=== PATIENT | male | born 1985 | race Two or more races ===

== ENCOUNTER 2021-08-24 04:55 | Emergency (ER) | payer OTHER ==
[~2021-08-24] VITALS: Ht 170.2 cm; Wt 90.7 kg
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
[2021-08-24] MEDS ORDERED: IV NS 1000 ML 1,000 ML IV ONE (05:15)
[2021-08-24] MEDS ORDERED: OLANZAPINE 10 MG VIAL IM ONE ×2 (05:15)
--- NOTE | 2021-08-24 05:15 | NUR ---
Dr. Javier on bedside for MSE.
[2021-08-24 05:38] LABS: HEMATOCRIT 40.6 % (36.7-47.1); MEAN CORPUSCULAR HEMOGLOBIN 31.1 uug (23.8-33.4); MEAN CORPUSCULAR VOLUME 87.7 fL (73.0-96.2); PLATELET COUNT (AUTO) 345 K/uL (152-348)
--- NOTE | 2021-08-24 05:45 | NUR ---
Pt taken to CT via transport.
[2021-08-24 05:47] LABS: ALANINE AMINOTRANSFERASE 51 U/L (16-63); ALKALINE PHOSPHATASE 127 U/L (50-136); ASPARTATE AMINOTRANSFERASE 35 U/L (15-37); BILIRUBIN,DIRECT 0.1 mg/dL (0.0-0.2); BILIRUBIN,TOTAL 0.7 mg/dL (0.2-1.0); CARBON DIOXIDE 30 mmol/L (21-32); CHLORIDE 102 mmol/L (98-107); CREATINE KINASE, TOTAL 837 U/L (39-308); CREATININE 1.2 mg/dL (0.6-1.3); GLUCOSE 106 mg/dL (74-106); POTASSIUM 4.1 mmol/L (3.5-5.1); TOTAL PROTEIN, SERUM 7.7 g/dL (6.4-8.2); UREA NITROGEN, BLOOD 15 mg/dL (7-18)
[2021-08-24 05:53] LABS: ACETAMINOPHEN < 2.0 ug/mL (10-30)
--- NOTE | 2021-08-24 06:00 | NUR ---
Pt back to ER from CT.
[2021-08-24 06:10] LABS: ETHANOL < 3 MG/DL (0-0)
--- NOTE | 2021-08-24 08:10 | NUR ---
Sent urine sample to lab. Gave pt breakfast tray.
[2021-08-24 08:15] LABS: *BILIRUBIN,URIN NEGATIVE (NEGATIVE); *BLOOD, URINE NEGATIVE (NEGATIVE); *CLARITY,URINE CLEAR (CLEAR); *COLOR,URINE YELLOW (YELLOW); *KETONES,URINE NEGATIVE (NEGATIVE); *UROBILINOGEN,URINE 0.2 E.U./dl (NORMAL); LEUKOCYTE ESTERASE ,URINE NEGATIVE (NEGATIVE); NITRITE, URINE NEGATIVE (NEGATIVE); PH,URINE 6.5 (5.0-8.0); UGLUCOSE NEGATIVE (NEGATIVE)
[2021-08-24 08:40] LABS: *AMPHETAMINE, URINE POSITIVE (NEGATIVE); *CANNABINOID, URINE POSITIVE (NEGATIVE); *COCCAINE, URINE NEGATIVE (NEGATIVE); *OPIATE, URINE NEGATIVE (NEGATIVE); *PHENCYCLIDINE SCREEN,URINE NEGATIVE (NEGATIVE)
--- NOTE | 2021-08-24 09:47 | NUR ---
Packet faxed to [facility]. [phone] hold also faxed.
--- NOTE | 2021-08-24 10:04 | NUR ---
Pt sleeping in bed, no distress noted.
--- NOTE | 2021-08-24 10:36 | NUR ---
ACCEPTING INFO: [facility] [address] [place] [address] [address], Room 100 F Accepting: Dr. Trevino Report To: [phone] [facility]: [id number]
--- NOTE | 2021-08-24 11:34 | NUR ---
Pt disgruntled, upset that he is on hold and being transfered to Hospital further away from his car (living out of vehicle), states he wants to leave. Security notified of possible elopement attempt. 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
--- NOTE | 2021-08-24 12:08 | NUR ---
Called report to LINA Bennett at [facility]. Gave report and pt. chart to EMT's, Pt transported.
== END 2021-08-24 12:05 ==
LOC: ER 05:09
DX: F23 Brief psychotic disorder (principal); R00.0 Tachycardia, unspecified; S00.01XA Abrasion of scalp, initial encounter; X58.XXXA Exposure to other specified factors, initial encounter; Y92.89 Other specified places as the place of occurrence of the external cause; F15.90 Other stimulant use, unspecified, uncomplicated; F12.90 Cannabis use, unspecified, uncomplicated; Z20.822 Contact with and (suspected) exposure to COVID-19
CPT/HCPCS: 36415; 70450; 80048; 80076; 80299; 80307; 80320; 81003; 82550; 85025; 87426; 93005; 96360; 96372; 99285; J7040; A4663; G0480; J2358